=== PATIENT | male | born 1990 | race Caucasian/White ===

== ENCOUNTER 2018-07-06 16:19 | Emergency (ER) | payer OTHER ==
[~2018-07-06] VITALS: Ht 182.9 cm; Wt 129.3 kg
[~2018-07-06 16:19] MED LIST: ACETAMINOPHEN-1 EAC1 PO; ADDERALL 10 MG10 MG PO; ADDERALL 30 MG30 MG PO; ADRENACLIC0.15 MG/0. IM; AFRIN15 ML NS; BACTRIM DS TAB1 EACH PO; BENADRYL25 MG PO; CARISOPRODOL 3350 MG PO; FLEXERIL PO; HYDROCODONE-AP1 EAC6 PO; LEVAQUIN 500 M500 M4 PO; LIPITOR 20 MG T20 M1 PO; LISINOPRIL20 MG PO; MEDROLDOSEPACK PO; MOBIC7.5 MG PO; NAPROSYN500 MG PO; NORCO 5-325 TA1 EACH PO; PROAIR HFA8.5 GM INH; PROMETHAZINE D480 ML PO; PYRIDIUM200 MG PO; ROBAXIN500 MG PO; TESSALON PERLE100 MG PO; TRIAMCINOLONE A80 G2 TOP; VENTOLIN HFA 1818 GM INH; ZPAK PO
[2018-07-06 16:55] LABS: URINE BILIRUBIN NEGATIVE (Negative); URINE BLOOD NEGATIVE (Negative); URINE CLARITY CLEAR; URINE COLOR YELLOW; URINE GLUCOSE-RANDOM NEGATIVE (Negative); URINE KETONES NEGATIVE (Negative); URINE LEUKOCYTES-REFLEX NEGATIVE (Negative); URINE NITRITE-REFLEX NEGATIVE (Negative); URINE PROTEIN NEGATIVE (Negative); URINE SPECIFIC GRAVITY >= 1.030 (1.005-1.030); URINE UROBILINOGEN 0.2 E.U./dl (0.2-1.0)
[2018-07-06] MEDS ORDERED: FLEXERIL PO (17:20)
[2018-07-06] MEDS ORDERED: TRAMADOL 50 MG50 MG PO (17:20)
[2018-07-06 17:48] VITALS: BP 169/106
== END 2018-07-06 17:52 | disposition home or self-care (01) ==
LOC: M.ERS 16:19
PROVIDERS: Nurse Practitioner
DX: M54.5 Low back pain (principal); I10 Essential (primary) hypertension; G89.29 Other chronic pain

== ENCOUNTER 2020-03-20 14:15 | Emergency (ER) | payer OTHER ==
[~2020-03-20] VITALS: Ht 182.9 cm; Wt 136.1 kg
[~2020-03-20 14:15] MED LIST changes: -ADDERALL 10 MG10 MG PO; +TRAMADOL 50 MG50 MG PO
[2020-03-20] MEDS ORDERED: LIPITOR 10 MG10 M1 PO (14:34)
[2020-03-20] MEDS ORDERED: HYDROCODON-ACE1 EAC7 PO (14:35)
[2020-03-20] MEDS ORDERED: ZESTRIL40 MG PO (14:35)
[2020-03-20] MEDS ORDERED: MELOXICAM7.5 MG PO (14:35)
[2020-03-20 16:35] VITALS: BP 169/101
== END 2020-03-20 16:36 | disposition left against medical advice (07) ==
LOC: M.ERS 14:15
DX: S22.42XA Multiple fractures of ribs, left side, initial encounter for closed fracture (principal); S80.11XA Contusion of right lower leg, initial encounter; R10.12 Left upper quadrant pain; I10 Essential (primary) hypertension; G89.29 Other chronic pain; M54.9 Dorsalgia, unspecified; Z79.899 Other long term (current) drug therapy; V23.9XXA Unspecified motorcycle rider injured in collision with car, pick-up truck or van in traffic accident, initial encounter; Y93.89 Activity, other specified; Y92.89 Other specified places as the place of occurrence of the external cause; Y99.8 Other external cause status